=== PATIENT | female | born 1965 | race African-American/Black ===

== ENCOUNTER 2018-04-27 18:03 | Emergency (ER) | payer OTHER ==
[~2018-04-27 18:03] MED LIST: ONDA8TAB11 PO; TYL3 PO
[2018-04-27 18:55] LABS: BASOPHILS % (AUTO) 0.5 % (0.0-5.0); EOSINOPHILS % (AUTO) 0.1 % (0.0-8.0); HEMATOCRIT 36.8 % (36-48); LYMPHOCYTES % (AUTO) 8.4 % (21.0-51.0); MEAN CORPUSCULAR HEMOGLOBIN 27.4 pg (27.0-33.0); MEAN CORPUSCULAR HGB CONC 33.1 g/dL (32.0-36.0); MEAN CORPUSCULAR VOLUME 82.7 fL (79-99); MONOCYTES % (AUTO) 6.7 % (3.0-13.0); NEUTROPHILS % (AUTO) 84.3 % (40.0-77.0); PLATELET COUNT (AUTO) 421 K/uL (130-400); RED BLOOD CELL COUNT(AUTO) 4.45 MIL/uL (4.00-5.50); WHITE BLOOD COUNT (AUTO) 7.3 K/uL (4.8-10.8)
[2018-04-27] MEDS ORDERED: SODIUM CHLORIDE 0.9% 1000ML 1,000 ML IV ONE (18:55)
[2018-04-27] MEDS ORDERED: ONDANSETRON HCL 4 MG/2 ML VIAL ONE (18:55)
[2018-04-27] MEDS ORDERED: MORPHINE SULFATE 4 MG/1ML SYG ONE (18:55)
[2018-04-27 19:08] LABS: CREATININE 0.6 mg/dL (0.5-1.5); POTASSIUM 3.8 mmol/L (3.5-5.1)
[2018-04-27 19:10] LABS: INR 0.96 (0.85-1.15); PARTIAL THROMBOPLASTIN TIME 18.8 SEC (26.3-35.5); PROTHROMBIN TIME 10.1 SEC (9.6-11.6)
[2018-04-27] MEDS ORDERED: IOHEXOL-350 75 ML VIAL IV ONE (19:16)
[2018-04-27 19:17] LABS: ALBUMIN 4.2 g/dL (3.5-5.0); BILIRUBIN,TOTAL 0.4 mg/dL (0.2-1.0); TOTAL PROTEIN, SERUM 8.6 g/dL (6.0-8.3)
== END 2018-04-27 22:27 | disposition home or self-care (01) ==
LOC: EDH 18:03
DX: R10.10 Upper abdominal pain, unspecified (principal); I82.890 Acute embolism and thrombosis of other specified veins; R11.2 Nausea with vomiting, unspecified; Z88.8 Allergy status to other drugs, medicaments and biological substances
CPT/HCPCS: 36415; 74177; 80053; 83690; 84484; 85025; 85610; 85730; 93005; 96361; 96374; 96375; 99285; J2270; J2405; J7030; Q9967

== ENCOUNTER 2020-09-04 06:26 | Day surgery (SDC) | payer OTHER ==
[~2020-09-04] VITALS: Ht 167.6 cm; Wt 53.1 kg
[~2020-09-04 06:26] MED LIST changes: -ONDA8TAB11 PO; +ONDA8TAB65 PO
[2020-09-04] MEDS ORDERED: BUPIVACAINE/PF 0.25% 50ML VIAL IJ SCH (07:15)
[2020-09-04] MEDS ORDERED: SODIUM CHLORIDE 0.9% 1000ML 0 ML IV ONE (07:15)
[2020-09-04] MEDS ORDERED: ETHYL ALCOHOL 5 ML VIAL IJ SCH (07:15)
== END 2020-09-04 07:30 | disposition home or self-care (01) ==
LOC: DAH 06:26 → ENDO 06:26
PROVIDERS: ATTEND Internal Medicine
DX: C25.0 Malignant neoplasm of head of pancreas (principal); Z20.828 Contact with and (suspected) exposure to other viral communicable diseases; Z53.8 Procedure and treatment not carried out for other reasons
CPT/HCPCS: 87426; J7030

== ENCOUNTER 2020-10-06 07:23 | Day surgery (SDC) | payer OTHER ==
[2020-10-06] VITALS (10 sets, daily range): BP systolic 90–112; BP diastolic 51–76
[~2020-10-06] VITALS: Ht 167.6 cm; Wt 54.0 kg
[~2020-10-06 07:23] MED LIST changes: +ALBU1.252 IH; +ALPR0.255 PO; +BISA10SU61 RC; +BUPIVACAINE/PF 0.25% 50ML VIAL IJ SCH; +DOXYCYCLINE PO; +ETHYL ALCOHOL 5 ML VIAL IJ SCH; +FENT-77 TD; +METO5TAB2 PO; +MORP-108 PO; +OMEP40CA13 PO; +PROM25SU58 RC; +SENN8.6T20 PO; +SODIUM CHLORIDE 0.9% 1000ML 1,000 ML IV ONE; -TYL3 PO; +[UNRECOGNIZED DRUG - OTHER] PO
[2020-10-06] MEDS ORDERED: BUPIVACAINE/PF 0.25% 30ML VIAL IJ SCH (08:45)
[2020-10-06] MEDS ORDERED: MIDAZOLAM HCL 1 MG/ML 2ML VIAL ONE (10:25)
[2020-10-06] MEDS ORDERED: PROPOFOL 10 MG/ML 20ML VIAL IV ONE (10:26)
[2020-10-06] MEDS ORDERED: MORPHINE SULFATE 2 MG/ML 1ML SYG IVP ONE (11:35)
[2020-10-06] MEDS ORDERED: MORPHINE SULFATE 2 MG/ML 1ML SYG ONE (11:40)
== END 2020-10-06 13:00 | disposition home or self-care (01) ==
LOC: DAH 07:23 → ENDO 07:23
PROVIDERS: ATTEND Internal Medicine Gastroenterology
DX: C25.0 Malignant neoplasm of head of pancreas (principal); Z20.822 Contact with and (suspected) exposure to COVID-19; F41.9 Anxiety disorder, unspecified; F32.9 Major depressive disorder, single episode, unspecified; K21.9 Gastro-esophageal reflux disease without esophagitis; K80.20 Calculus of gallbladder without cholecystitis without obstruction; Z79.899 Other long term (current) drug therapy; Z98.890 Other specified postprocedural states; Z88.8 Allergy status to other drugs, medicaments and biological substances; Z92.21 Personal history of antineoplastic chemotherapy
CPT/HCPCS: 43253; A4215; A4221; A4222; A4223; A4606; A4620; A4649; A4657 ×2; A4663; C9803; J2250; J2704; J3490; J7030; U0003